=== PATIENT | female | born 1990 | race American Indian/Alaskan Native ===

== ENCOUNTER 2018-09-13 13:28 | Inpatient (IN) | payer MEDICAID ==
[2018-09-13] MEDS ORDERED: PEPCID IV NR (13:50)
[2018-09-13] MEDS ORDERED: BICITRA PO NR (13:50)
[2018-09-13] MEDS ORDERED: REGLAN IV NR (13:50)
--- NOTE | 2018-09-13 13:57 | History and Physical Report ---
History of Present Illness Date of admission: 09/13/18 13:28 Chief complaint: transferred from clinic due to elevated BP 170s/115 History of present illness: 28yo 37wks KERI 10/03/18 was transferred from clinic due to worsening of chronic hypertension on Labetolol. She also is an insulin-dependent diabetic on insulin. Her last Hemoglobin A1C was 7-8. She has a history of two previous section. She reports good movement, no loss of fluid and no vaginal bleeding. She is a patient of [facility] since 11 weeks gestation and is co-managed by [facility] for chronic hypertension, pregestational diabetes on insulin. Her has been also complicated by GBS+ cultures, Chlamydia with negative test of cure, sickle cell trait and anemia. 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 Social history: single - Obstetrical History Expected Date of Delivery: 10/03/18 Actual Gestation: 37 Week(s) 1 Day(s) : 3 Number of Living Children: 2 Medications and Allergies Allergies Allergy/AdvReac Type Severity Reaction Status Date / Time No Known Allergies Allergy Unverified 09/13/18 13:46 Active Meds: Active Medications Citric Acid/Sodium Citrate (Bicitra) 30 ml PO ONCE ONE Stop: 09/13/18 13:51 Famotidine (Pepcid) 20 mg IV ONCE ONE Stop: 09/13/18 13:51 Cefazolin Sodium (Ancef/Sterile Water 2 Gm/20 Ml) 2 gm in 20 mls @ 80 mls/hr IV PREOP NR; Protocol Lactated Ringer's (Lactated Ringers) 1,000 mls @ 2,250 mls/hr IV PREOP MARTITA Stop: 09/14/18 14:27 Oxytocin/Sodium Chloride (Pitocin/Ns 20 Unit/1000ml Drip) 20 units in 1,000 mls @ 0 mls/hr IV TITR MARTITA Metoclopramide HCl (Reglan) 10 mg IV ONCE ONE Stop: 09/13/18 13:51 Results All other labs normal. Assessment and Plan - Patient Problems (1) 37 weeks gestation of Current Visit: Yes Status: Acute Plan to address problem: 1. Admit to L&D 2. Routine labs. PIH labs. Serum glucose. IVF 3. URIEL 4. Ancef 2g IV 5. Risk, benefits and alternatives discussed and informed consent signed in chart. 6. Proceed to repeat csection due to worsening, uncontrolled chronic hypertension on medication and insulin dependent diabetes mellitus at 37 weeks. See APA recommendation per ACOG. (2) Insulin dependent diabetes mellitus Current Visit: Yes Status: Acute (3) Chronic hypertension affecting Current Visit: Yes Status: Acute Plan to address problem: Continue Labetolol . (4) Sickle cell trait Current Visit: Yes Status: Acute
[2018-09-13] MEDS ORDERED: PITOCin/NS 20 UNIT/1000ML DRIP 20 UNITS/1,000 ML BAG IV SCH ×2 (14:00→18:00)
[2018-09-13] MEDS ORDERED: ANCEF/STERILE WATER 2 GM/20 ML 2 GM/20 ML SYRINGE IV NR (14:00)
[2018-09-13] MEDS ORDERED: LACTATED RINGERS 2,000 ML ONE (14:07)
[2018-09-13] MEDS ORDERED: APRESOLINE IV ONE (14:25)
[2018-09-13 14:37] LABS: Basophils % (Auto) 0.5 % (0.0-1.8); Eosinophils # (Auto) 0.1 K/mm3 (0.0-0.4); Eosinophils % (Auto) 1.2 % (0.0-4.3); Hematocrit 37.8 % (30.3-42.9); Hemoglobin 12.2 gm/dl (10.1-14.3); Lymphocytes # (Auto) 1.5 K/mm3 (1.2-5.4); Lymphocytes % (Auto) 24.5 % (13.4-35.0); Mean Corpuscular HGB Conc 32 % (30-34); Mean Corpuscular Volume 73 fl (79-97); Monocytes # (Auto) 0.5 K/mm3 (0.0-0.8); Monocytes % (Auto) 8.3 % (0.0-7.3); Red Blood Count 5.22 M/mm3 (3.65-5.03); Red Cell Distribution Width 14.9 % (13.2-15.2)
[2018-09-13] MEDS ORDERED: SENSORCAINE/DEXTR 0.75-8.25% INFILTRATI ONE (14:45)
[2018-09-13] MEDS ORDERED: SUBLIMAZE ONE (14:45)
[2018-09-13 14:54] LABS: Alanine Aminotransferase 26 units/L (7-56); Albumin 3.2 g/dL (3.9-5); BUN/Creatinine Ratio 15; Blood Urea Nitrogen 9 mg/dL (7-17); Calcium 8.8 mg/dL (8.4-10.2); Hemolysis Index 5
[2018-09-13] MEDS ORDERED: SODIUM CHLORIDE FLUSH SYRINGE 10 ML IV PRN (15:00)
[2018-09-13] MEDS ORDERED: fentaNYL-BUPIV 2 MCG/ML-0.125% 200 MCG/100 ML BAG EPIDURAL SCH (15:00)
[2018-09-13] MEDS ORDERED: NUBAIN IV PRN (15:00)
[2018-09-13] MEDS: LACTATED RINGERS 1,000 ML IV SCH ×2 (15:14→15:15)
[2018-09-13] MEDS ORDERED: PHENERGAN PO PRN (15:30)
[2018-09-13] MEDS ORDERED: ZOFRAN IV PRN (15:30)
[2018-09-13] MEDS ORDERED: MORPHINE IV PRN (15:30)
[2018-09-13] MEDS ORDERED: NARCAN 0.4 MG/1 ML IV PRN ×2 (15:30→17:59)
[2018-09-13] MEDS ORDERED: PHENERGAN PR PRN (15:30)
[2018-09-13 15:33] LABS: Platelet Count 150 K/mm3 (140-440)
[2018-09-13] MEDS ORDERED: NACL 0.9% IR ONE (16:29)
[2018-09-13] MEDS ORDERED: WATER FOR IRRIG STERILE IR ONE (16:29)
--- NOTE | 2018-09-13 17:58 | Event Note ---
PATIENT IS TO RECEIVE NO TORADOL OR NSAIDs this admission due to mild thrombocytopenia, history of pre-op SWEET-2 inhibitor use, estimated blood loss >1,000ml and chronic hypertension.
[2018-09-13] MEDS ORDERED: LANSINOH TP PRN (17:59)
[2018-09-13] MEDS ORDERED: MYLICON PO PRN (17:59)
[2018-09-13] MEDS ORDERED: TUCKS PAD TP PRN (17:59)
[2018-09-13] MEDS ORDERED: D50W (25GM) Syringe IV PRN (18:03)
[2018-09-13] MEDS: APRESOLINE IV PRN ×2 (18:21→19:02)
--- NOTE | 2018-09-13 18:25 | Operative Report ---
Operative Report Operative Report: PREOP Diagnosis 1. 37 1/7 weeks gestation 2. Previous section 3. Uncontrolled chronic hypertension on medication 4. Pregestational diabetes mellitus on insulin Postop Diagnosis 1. 37 1/7 weeks gestation 2. Previous section 3. Uncontrolled chronic hypertension on medication 4. Pre-gestational diabetes mellitus on insulin 5. Multiple leiomyoma Procedure: Repeat low-transverse section Findings 1. Viable female infant in the compound presentation (hand, vertex) weighing 8lb 6oz, 3646g APGARS 8 at 1 min, 9 at 5 min 2. Leiomyomas- one right anterior uterine body, one right posterior uterine body 3. Normal bilateral ovaries and tubes 4. Nuchal cord x 1 Surgeon 1. Sandy Toledo MD Anesthesia: 1. Spinal I/O: EBL: 1300ml UOP: 400ml, clear urine IVF 2500ml LR Specimens removed: 1. Placenta Complications: none Disposition: Patient taken to recovery room in stable condition INDICATIONS: The patient is a 28yo at 37 1/7weeks that was transferred from clinic due to BP 170s/115. Her csection was scheduled for 38 weeks but due to worsening chronic hypertension requiring IV anti-hypertensives, insulin- dependent diabetes and history of alirio csection the decision was made to perform repeat csection today. The patient was consented and the risks includ ing but not limited to bleeding, infections, injury to surrounding organs, potential injury to mother/infant were discussed. All questions were answered and informed consent signed. PROCEDURE: The patient was taken to the OR in stable condition. Adequate anesthesia was achieved with epidural anesthesia. A grajeda catheter was placed. She wore SCDs for DVT prophylaxis. And received Ancef for infection prophylaxis. heart tones were confirmed at 157. The patient was prepped and draped in the usual fashion and an additional time out was done. A Pfannestiel incision was made over the previous uterine scar. The fascia was incised and the incision extended laterally. The superior and inferior aspect of the rectus muscle was dissected off of the fascia. Entry into the peritoneum was achieved. The incision was extended cranially and caudally. An Mariano retractor was placed. A low-transverse incision made made in the uterus and extended laterally. membranes were ruptured and noted to be clear. The head was brought to the hysterotomy annd (right) hand was noted to present as well. Nuchal cord x 1 was reduced, body delivered. The 's mouth was bulb suctioned. 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 The placenta was delivered intact and 20 units of IV Pitocin were added to LR fluids. The uterus was cleaned of all clots. The uterus was repaired with 0- Vicryl in a running, locked stitch and an imbricating layer of the same suture was used. 2-0 Vicryl was used to achieve hemostasis. The rectus and peritoneum was repproximated with 2-0 Vicryl. Interceed was placed between the uterine and rectus muscle planes. The rectus muscle was noted to bleed and Tissell Fibrin sealant was applied. The fascia was closed with 0 Vicryl. The right aspect of the subcutaneous layer was noted to bleed and a 2-0 Vicryl was used to achieve hemostasis. The subcutaneous layer reapproximated with 2-0 Vicryl and the Skin closed with 4-0 Vicryl. The patient tolerated the procedure well. All counts were correct x 3. Urine was noted to be clear at close of case. I was present and scrubbed for the entire procedure. The patient was taken to the recovery room in stable condition.
[2018-09-13] MEDS: DILAUDID IV PRN (19:38)
[2018-09-13] MEDS: NORMODYNE PO SCH (21:49)
[2018-09-13] MEDS ORDERED: D5LR 1,000 ML IV SCH (22:00)
[2018-09-13] MEDS: HumuLIN R SUB-Q SCH (22:12)
[2018-09-13] MEDS: ANCEF/NS 1 GM/50 ML 1 GM/50 ML BAG IV SCH (23:59)
[2018-09-14] MEDS: DILAUDID IV PRN
[2018-09-14] MEDS: PERCOCET 5/325 PO PRN ×3 (05:32→21:11)
[2018-09-14 06:14] LABS: Hematocrit 25.4 % (30.3-42.9); Hemoglobin 8.3 gm/dl (10.1-14.3)
[2018-09-14] MEDS: ANCEF/NS 1 GM/50 ML 1 GM/50 ML BAG IV SCH (08:32)
[2018-09-14] MEDS: LACTATED RINGERS 1,000 ML IV SCH (08:32)
[2018-09-14] MEDS: HumuLIN R SUB-Q SCH ×3 (08:57→16:30)
[2018-09-14] MEDS: FEOSOL PO SCH (10:02)
[2018-09-14] MEDS: NORMODYNE PO SCH ×2 (10:02→23:00)
--- NOTE | 2018-09-14 10:35 | Progress Note ---
Assessment and Plan A: POD #1 IDDM CHTN P: Follow Routine PostOp Orders Continue MD management for IDDM and CHTN Encourage ambulation Subjective - Subjective Date of service: 09/14/18 Patient reports: appetite normal, pain well controlled, ambulating normally, other (Complians of mild BUCKNER, denies visual changes, N&V, and edema) Objective - Vital Signs Latest vital signs: Vital Signs Temp Pulse Resp BP BP Pulse Ox 09/14/18 08:41 98.7 F 101 H 18 147/95 98 09/14/18 05:32 18 09/14/18 04:19 98.8 F 102 H 16 146/88 97 09/14/18 00:31 99.2 F 111 H 16 140/87 96 09/14/18 00:00 20 09/13/18 21:49 108 H 141/87 09/13/18 20:10 100 H 146/92 09/13/18 19:38 18 09/13/18 19:20 98.7 F 99 H 15 139/86 100 09/13/18 19:02 100 H 150/84 09/13/18 18:57 99 H 29 H 142/89 100 09/13/18 18:45 100 H 14 151/83 99 09/13/18 18:30 95 H 14 147/86 100 09/13/18 18:25 100 H 14 161/87 141/76 99 09/13/18 18:21 90 161/87 09/13/18 18:15 75 11 L 158/87 158/89 99 09/13/18 18:10 76 15 155/93 155/93 99 09/13/18 18:05 99 H 14 158/86 158/86 99 09/13/18 18:00 98.5 F 89 11 L 130/88 130/88 99 09/13/18 15:11 96 H 132/69 09/13/18 15:09 98 H 134/71 09/13/18 14:58 99 H 150/85 09/13/18 14:57 99 H 181/109 09/13/18 14:47 81 183/98 09/13/18 14:46 81 183/98 09/13/18 14:40 99.6 F 20 09/13/18 14:26 97 H 166/91 09/13/18 14:12 82 179/93 09/13/18 13:57 85 163/92 09/13/18 13:55 85 167/105 09/13/18 13:54 90 165/105 09/13/18 13:52 86 174/107 Intake and Output 09/13/18 09/14/18 09/14/18 22:59 06:59 14:59 Intake Total 3937.5 550 Output Total 650 1200 400 Balance 3287.5 -650 -400 Intake: IV 3937.5 50 ANCEF/NS 1 GM/50 ML 1 gm 50 In 50 ml @ 100 mls/hr IV Q8H MARTITA Rx#:[id number] Lactated Ringers 1,000 ml 1037.5 @ 2250 mls/hr IV PREOP MARTITA Rx#:[id number] Intake, Free Water 500 Output: Urine 650 1200 400 Indwelling Catheter 1200 400 Other: Total, Output Amount 800 400 Estimated Blood Loss 1,300 - Exam Breasts: Present: normal Cardiovascular: Present: Regular rate Lungs: Present: Clear to auscultation, Normal air movement Abdomen: Present: normal appearance, soft, normal bowel sounds Uterus: Present: normal, firm, fundal height below umbilicus Extremities: Present: normal Incision: Present: normal, dry, dressed - Labs Labs: Abnormal lab results 09/13/18 09/13/18 09/14/18 Range/Units 14:12 14:12 05:56 RBC 5.22 H (3.65-5.03) M/mm3 Hgb 8.3 L D (10.1-14.3) gm/dl Hct 25.4 L D (30.3-42.9) % MCV 73 L (79-97) fl MCH 23 L (28-32) pg [place] % (Auto) 8.3 H (0.0-7.3) % Sodium 135 L (137-145) mmol/L Creatinine 0.6 L (0.7-1.2) mg/dL POC Glucose (70-105) Alkaline Phosphatase 144 H (35-129) units/L Albumin 3.2 L (3.9-5) g/dL 09/14/18 Range/Units 08:48 RBC (3.65-5.03) M/mm3 Hgb (10.1-14.3) gm/dl Hct (30.3-42.9) % MCV (79-97) fl MCH (28-32) pg [place] % (Auto) (0.0-7.3) % Sodium (137-145) mmol/L Creatinine (0.7-1.2) mg/dL POC Glucose 174 H (70-105) Alkaline Phosphatase (35-129) units/L Albumin (3.9-5) g/dL
[2018-09-14] MEDS: MILK OF MAGNESIA PO PRN (22:55)
[2018-09-15] MEDS: PERCOCET 5/325 PO PRN ×3 (01:22→17:21)
[2018-09-15] MEDS: HumuLIN R SUB-Q SCH ×3 (09:02→21:55)
[2018-09-15] MEDS: NORMODYNE PO SCH ×2 (10:00→21:57)
[2018-09-15] MEDS: FEOSOL PO SCH (10:00)
[2018-09-15 12:28] LABS: Bilirubin,Urine NEG (Negative); Blood,Urine LG (Negative); Color,Urine Yellow (Yellow); Mucus,Urine FEW /HPF; Protein,Urine <15 mg/dL mg/dL (Negative); Urobilinogen,Urine < 2.0 mg/dL (<2.0)
--- NOTE | 2018-09-15 14:01 | Progress Note ---
Assessment and Plan - Patient Problems (1) 37 weeks gestation of Current Visit: Yes Status: Acute (2) delivery delivered Current Visit: Yes Status: Acute Plan to address problem: Continue routine postop care. (3) Tachycardia Current Visit: Yes Status: Acute Plan to address problem: Patient is afebrile. Tachycardia may be due to anemia although patient is currently asymptomatic.. Repeat CBC today. If stable, will do EKG and PE workup. (4) Anemia Current Visit: Yes Status: Acute (5) Hypertension Current Visit: Yes Status: Acute Plan to address problem: BP has been stable. Continue labetolol. (6) Diabetes Current Visit: Yes Status: Acute Qualifiers: Diabetes mellitus type: type 2 Diabetes mellitus complication status: without complication Plan to address problem: Continue sliding scale. Patient will continue 1/2 dose of previous insulin regimen after discharge. Subjective - Subjective Date of service: 09/15/18 Principal diagnosis: S/P repeat C/section. IDDM. CHTN Interval history: Patient is S/P repeat C/section 2 days ago. She has chronic HTN.She is on labetolol. Her BP has been in the 130-140's/70-80's. She denies any headache or visual changes. She also has pre-gestational DM and is on insulin sliding scale. Her HR has been in the 110-120's. Her current Hb is 8.3 (post-op). She denies any dizziness, chest pain or palpitation. She has been ambulating well. Objective - Vital Signs Latest vital signs: Vital Signs Temp Pulse Resp BP BP Pulse Ox 09/15/18 10:00 124 H 18 130/79 09/15/18 08:25 98.0 F 111 H 20 140/90 98 09/15/18 03:38 98.9 F 96 H 18 139/83 139/83 96 09/15/18 01:22 18 09/15/18 00:46 99.2 F 18 129/73 09/15/18 00:42 99.2 F 99 H 18 129/73 98 09/14/18 23:00 109 H 150/92 09/14/18 22:59 109 H 150/92 95 09/14/18 21:11 18 09/14/18 21:01 97.5 F L 20 139/76 09/14/18 20:55 97.5 F L 102 H 20 139/76 09/14/18 15:41 99.2 F 95 H 18 141/86 97 Intake and Output 09/14/18 09/15/18 09/15/18 23:59 07:59 15:59 Intake Total 480 600 Output Total 800 Balance -320 600 Intake: Oral 480 240 Intake, Free Water 360 Output: Urine 800 Indwelling Catheter 800 Other: Total, Intake Amount 480 240 Total, Output Amount 800 # Voids Indwelling Catheter 1 Void 2 - Exam Cardiovascular: Present: Normal S1, Normal S2 Lungs: Present: Clear to auscultation Vulva: both: normal Deep Tendon Reflex Grade: Normal +2 - Labs Labs: Abnormal lab results 09/14/18 09/15/18 09/15/18 Range/Units 16:21 08:27 12:39 POC Glucose 124 H 161 H 220 H (70-105)
[2018-09-15 14:39] LABS: Basophils % (Auto) 0.1 % (0.0-1.8); Eosinophils # (Auto) 0.1 K/mm3 (0.0-0.4); Eosinophils % (Auto) 0.9 % (0.0-4.3); Hematocrit 23.1 % (30.3-42.9); Hemoglobin 7.4 gm/dl (10.1-14.3); Lymphocytes # (Auto) 1.3 K/mm3 (1.2-5.4); Lymphocytes % (Auto) 14.2 % (13.4-35.0); Mean Corpuscular HGB Conc 32 % (30-34); Mean Corpuscular Volume 73 fl (79-97); Monocytes # (Auto) 0.7 K/mm3 (0.0-0.8); Monocytes % (Auto) 7.8 % (0.0-7.3); Platelet Count 163 K/mm3 (140-440); Red Blood Count 3.16 M/mm3 (3.65-5.03); Red Cell Distribution Width 15.1 % (13.2-15.2)
[2018-09-15] MEDS ORDERED: NACL 0.9% 500 ML 500 ML IV NR (15:38)
--- NOTE | 2018-09-15 15:46 | Event Note ---
Date: 09/15/18 Patient is S/P repeat C/section 2 days ago. She has chronic HTN.She is on labetolol. Her BP has been in the 130-140's/70-80's. She denies any headache or visual changes. She also has pre-gestational DM and is on insulin sliding scale. Her HR has been in the 110-120's. Her post-op Hb was 8.3 yesterday. She denies any dizziness. Today, H/H is 7.3/23 (from Hb 12.2 pre-op). EKG showed sinus tachycardia. Patient was counselled for blood transfusion due to symptomatic anemia. Will cross-match and transfuse 2 units PRBCs. Will F/U cbc 3 hrs after completion.
[2018-09-15] MEDS ORDERED: BENADRYL IV ONE (19:43)
[2018-09-15] MEDS: TYLENOL PO PRN (19:53)
[2018-09-16] MEDS ORDERED: NORMODYNE PO ONE (03:00)
[2018-09-16] MEDS: PERCOCET 5/325 PO PRN ×2 (04:34→21:28)
[2018-09-16] MEDS ORDERED: APRESOLINE IV ONE (05:11)
[2018-09-16] MEDS ORDERED: APRESOLINE IV PRN (05:13)
[2018-09-16 06:39] LABS: Hematocrit 29.6 % (30.3-42.9); Hemoglobin 9.9 gm/dl (10.1-14.3); Mean Corpuscular HGB Conc 33 % (30-34); Mean Corpuscular Volume 77 fl (79-97); Platelet Count 159 K/mm3 (140-440); Red Blood Count 3.87 M/mm3 (3.65-5.03); Red Cell Distribution Width 17.2 % (13.2-15.2)
[2018-09-16 06:55] LABS: Alanine Aminotransferase 20 units/L (7-56); Albumin 2.7 g/dL (3.9-5); BUN/Creatinine Ratio 15; Blood Urea Nitrogen 6 mg/dL (7-17); Calcium 8.6 mg/dL (8.4-10.2); Hemolysis Index 14
[2018-09-16] MEDS: NORMODYNE PO SCH ×2 (10:44→21:30)
[2018-09-16] MEDS: FEOSOL PO SCH (10:44)
--- NOTE | 2018-09-16 11:33 | Progress Note ---
Subjective - Subjective Date of service: 09/16/18 Principal diagnosis: S/P repeat C/section - POD #3. IDDM. CHTN Interval history: Pt not in room - in NICU [place]: doing well, in NICU Objective - Vital Signs Latest vital signs: Vital Signs Temp Pulse Resp BP BP Pulse Ox 09/16/18 10:44 111 H 155/97 09/16/18 08:02 98.0 F 107 H 24 142/82 97 09/16/18 06:45 98.2 F 110 H 16 146/88 146/88 98 09/16/18 06:17 113 H 18 129/72 98 09/16/18 06:15 98.4 F 115 H 18 129/72 09/16/18 06:00 115 H 142/89 09/16/18 05:50 111 H 158/102 09/16/18 05:45 109 H 171/112 09/16/18 05:44 105 H 171/112 09/16/18 04:37 105 H 171/108 97 09/16/18 04:34 20 09/16/18 03:19 107 H 172/105 09/16/18 01:41 99.8 F H 106 H 20 155/95 98 09/16/18 01:11 98.8 F 109 H 16 155/95 09/16/18 00:41 98.6 F 109 H 16 148/89 09/16/18 00:11 99.2 F 103 H 18 162/99 09/15/18 23:41 98.7 F 103 H 20 152/96 09/15/18 23:11 99.4 F 105 H 18 155/96 09/15/18 22:56 99.6 F 103 H 18 153/92 09/15/18 22:55 103 H 18 153/92 99 09/15/18 21:57 105 H 160/88 09/15/18 21:52 105 H 18 160/88 98 09/15/18 21:22 109 H 18 161/94 97 09/15/18 20:50 105 H 18 143/86 97 09/15/18 20:35 108 H 18 146/85 95 09/15/18 20:22 109 H 20 153/92 97 09/15/18 20:05 98.4 F 122 H 18 140/86 09/15/18 17:21 20 09/15/18 16:41 98.3 F 115 H 20 131/81 95 Intake and Output 09/15/18 09/16/18 09/16/18 22:59 06:59 14:59 Intake Total 490 250 Output Total 800 Balance -310 250 Intake: Intake, Free Water 240 Blood Product 250 250 Leukoreduced Red Blood 250 Cells Unit [id number] Leukoreduced Red Blood 0 250 Cells Unit [id number] Output: Urine 800 Void 800 Other: Total, Output Amount 800 # Voids Void 1 - Labs Labs: Abnormal lab results 09/13/18 09/15/18 09/15/18 Range/Units 14:12 12:39 14:00 RBC 3.16 L (3.65-5.03) M/mm3 Hgb 7.4 L (10.1-14.3) gm/dl Hct 23.1 L (30.3-42.9) % MCV 73 L (79-97) fl MCH 24 L (28-32) pg RDW (13.2-15.2) % [place] % (Auto) 7.8 H (0.0-7.3) % Seg Neutrophils % 77.0 H (40.0-70.0) % BUN (7-17) mg/dL Creatinine (0.7-1.2) mg/dL Glucose (65-100) mg/dL POC Glucose 220 H (70-105) Total Protein (6.3-8.2) g/dL Albumin (3.9-5) g/dL Crossmatch See Detail 09/15/18 09/15/18 09/15/18 Range/Units 17:18 21:37 23:56 RBC (3.65-5.03) M/mm3 Hgb (10.1-14.3) gm/dl Hct (30.3-42.9) % MCV (79-97) fl MCH (28-32) pg RDW (13.2-15.2) % [place] % (Auto) (0.0-7.3) % Seg Neutrophils % (40.0-70.0) % BUN (7-17) mg/dL Creatinine (0.7-1.2) mg/dL Glucose (65-100) mg/dL POC Glucose 142 H 212 H 122 H (70-105) Total Protein (6.3-8.2) g/dL Albumin (3.9-5) g/dL Crossmatch 09/16/18 09/16/18 Range/Units 06:10 06:10 RBC (3.65-5.03) M/mm3 Hgb 9.9 L (10.1-14.3) gm/dl Hct 29.6 L D (30.3-42.9) % MCV 77 L (79-97) fl MCH 26 L (28-32) pg RDW 17.2 H (13.2-15.2) % [place] % (Auto) (0.0-7.3) % Seg Neutrophils % (40.0-70.0) % BUN 6 L (7-17) mg/dL Creatinine 0.4 L (0.7-1.2) mg/dL Glucose 105 H (65-100) mg/dL POC Glucose (70-105) Total Protein 5.5 L (6.3-8.2) g/dL Albumin 2.7 L (3.9-5) g/dL Crossmatch
[2018-09-16] MEDS: TYLENOL PO PRN (16:45)
[2018-09-16] MEDS: PROCARDIA XL PO SCH (18:25)
--- NOTE | 2018-09-16 18:31 | Event Note ---
Date: 09/16/18 Event note at 17:55: Patient's BP elevated 155/97 in spite of Labetalol 300 mg po BID. No headache or visual disturbance. Normal platelet count, AST, ALT. Consulted with Dr. Lamb re: this patient and elevated blood pressures. Procardia XL 30 mg po daily, first dose to be given now. Notified patient's nurse re: addition of Procardia.
[2018-09-16] MEDS: HumuLIN R SUB-Q SCH (22:36)
[2018-09-17] MEDS: HumuLIN R SUB-Q SCH ×6 (08:10→22:35)
[2018-09-17] MEDS: FEOSOL PO SCH (10:11)
[2018-09-17] MEDS: NORMODYNE PO SCH ×2 (10:11→22:10)
[2018-09-17] MEDS: PROCARDIA XL PO SCH (10:11)
--- NOTE | 2018-09-17 10:28 | Progress Note ---
Assessment and Plan A: /postop day 4 S/P repeat low transverse section. Anemia secondary to and blood loss. Elevated blood pressures (patient is already on PO Labetalol and Procardia). Mild tachycardia. Pregestational diabetes. P: Continue iron supplementation. Hospitalist consult due to elevated blood pressures, tachycardia, and diabetes. Consulted with Dr. Lamb re: this patient. Subjective - Subjective Date of service: 09/17/18 Principal diagnosis: /postop day 4 S/P repeat LTCS Interval history: /postop day 4 S/P repeat low transverse section. Patient denies headache, visual disturbance, chest pain, SOB, nausea or vomiting, abdominal or epigastric pain, or swelling. Voiding without difficulty; ambulating well. Passing gas. Tolerating a regular diet without nausea or vomiting. Patient reports: appetite normal, voiding normally, pain well controlled, flatus, ambulating normally, no dizzy ambulation, no nauseated [place]: doing well Objective - Vital Signs Latest vital signs: Vital Signs Temp Pulse Resp BP BP Pulse Ox 09/17/18 10:10 101 H 148/88 09/17/18 07:28 98.3 F 106 H 16 149/93 98 09/17/18 04:30 98.0 F 104 H 20 109/76 09/17/18 01:52 96 H 20 144/88 09/16/18 23:45 98.4 F 102 H 20 138/87 09/16/18 22:47 100 H 20 148/92 09/16/18 22:28 18 09/16/18 21:30 105 H 170/104 09/16/18 21:28 20 09/16/18 20:20 98.2 F 105 H 20 170/104 09/16/18 16:50 98.4 F 102 H 24 156/101 98 09/16/18 16:45 20 09/16/18 10:44 111 H 155/97 Intake and Output 09/16/18 09/17/18 09/17/18 23:59 07:59 15:59 Intake Total 480 Balance 480 Intake: Oral 480 Other: Total, Intake Amount 240 # Voids Void 1 1 - Exam Cardiovascular: Present: Regular rate, Normal S1, Normal S2 Lungs: Present: Clear to auscultation Abdomen: Present: normal appearance, soft, normal bowel sounds. Absent: distention, tenderness, guarding, rigidity Uterus: Present: normal, firm, fundal height below umbilicus. Absent: bogginess, tenderness Extremities: Present: normal. Absent: tenderness, edema Incision: Present: normal, dry, intact - Labs Labs: Abnormal lab results 09/16/18 09/16/18 09/17/18 Range/Units 17:04 22:05 08:02 POC Glucose 138 H 171 H 138 H (70-105)
[2018-09-17 12:15] LABS: Hematocrit 29.8 % (30.3-42.9); Hemoglobin 9.9 gm/dl (10.1-14.3)
--- NOTE | 2018-09-17 12:16 | Consultation ---
History of Present Illness - Reason for Consult Consult date: 09/17/18 Hypertension, Tachycardia, elevated serum glucose Requesting physician: COREY WATSON - History of Present Illness 28 YO Female POD #4 S/P C Section. Consulted placed byPrimo Laura CNP for HTN, Diabetes, and Tachycardia. Pt seen and evaluated in her room. Pt denies fever, chills, CP, palpitations, NVD, Trauma, unilateral leg swelling, calf pain, individual/family history of DVT/PE/Blood Clotting Disorders, cough, blurred vision, headache, dizziness, shortness of breath, vertigo, skin rash, polydipsia, polyuria,polyphagia, or recent ill contacts. Pt denies uncontrolled pain. Pt reports that the blood pressure cuff in painful when it inflates which causes patient to "get anxious". No reported nursing events. Past History Past Medical History: diabetes, hypertension Past Surgical History: Social history: single Family history: diabetes, hypertension Medications and Allergies Allergies Allergy/AdvReac Type Severity Reaction Status Date / Time No Known Allergies Allergy Unverified 09/13/18 13:46 Home Medications Medication Instructions Recorded Confirmed Last Taken Type Ferrous Sulfate [Feosol 325 MG tab] 325 mg PO BID 30 Days #60 tablet 09/13/18 Unknown Rx oxyCODONE /ACETAMINOPHEN [Percocet 1 tab PO Q4HR PRN 14 Days #30 tab 09/13/18 Unknown Rx 5/325] Active Meds: Active Medications Acetaminophen (Tylenol) 650 mg PO Q4H PRN PRN Reason: Fever >100.5/BUCKNER Last Admin: 09/16/18 16:45 Dose: 650 mg Documented by: Dextrose (D50w (25gm) Syringe) 50 ml IV PRN PRN PRN Reason: Hypoglycemia Ferrous Sulfate (Feosol) 325 mg PO QDAY MARTITA Last Admin: 09/17/18 10:11 Dose: 325 mg Documented by: Hydralazine HCl (Apresoline) 5 mg IV Q30MIN PRN PRN Reason: Blood Pressure Hydromorphone HCl (Dilaudid) 0.5 mg IV Q4H PRN PRN Reason: breakthrough pain > 7/10 Last Admin: 09/14/18 00:00 Dose: 0.5 mg Documented by: Oxytocin/Sodium Chloride (Pitocin/Ns 20 Unit/1000ml Drip) 20 units in 1,000 mls @ 0 mls/hr IV TITR MARTITA Fentanyl/Bupivacaine/Sodium Chlor (Fentanyl-Bupiv 2 Mcg/Ml-0.125%) 200 mcg in 100 mls @ 8 mls/hr EPIDURAL TITRATE [facility]; Protocol Oxytocin/Sodium Chloride (Pitocin/Ns 20 Unit/1000ml Drip) 20 units in 1,000 mls @ 250 mls/hr IV DIRECT MARTITA Dextrose/Lactated Ringer's (D5lr) 1,000 mls @ 125 mls/hr IV DIRECT MARTITA Last Admin: 09/13/18 21:56 Dose: 125 mls/hr Documented by: Insulin Human Regular (Humulin R) 0 units SUB-Q AC [facility]; Protocol Last Admin: 09/17/18 08:10 Dose: Not Given Documented by: Insulin Human Regular (Humulin R) 0 units SUB-Q QHS [facility]; Protocol Last Admin: 09/16/18 22:36 Dose: 2 units Documented by: Labetalol HCl (Normodyne) 300 mg PO BID [facility] Last Admin: 09/17/18 10:11 Dose: 300 mg Documented by: Magnesium Hydroxide (Milk Of Magnesia) 30 ml PO QHS PRN PRN Reason: Constip Unrelieved By Senna Last Admin: 09/14/18 22:55 Dose: 30 ml Documented by: Multi-Ingredient Ointment (Lansinoh) 1 applic TP PRN PRN PRN Reason: dryness/cracking Nalbuphine HCl (Nubain) 2.5 mg IV Q2H PRN PRN Reason: Itching Naloxone HCl (Narcan 0.4 Mg/1 Ml) 0.1 mg IV Q2MIN PRN PRN Reason: Res Rate </= 8 or 02 SAT < 92% Nifedipine (Procardia Xl) 30 mg PO QDAY [facility] Last Admin: 09/17/18 10:11 Dose: 30 mg Documented by: Ondansetron HCl (Zofran) 4 mg IV Q8H PRN PRN Reason: Nausea And Vomiting Oxycodone/Acetaminophen (Percocet 5/325) 2 tab PO Q4H PRN PRN Reason: Pain, Moderate (4-6) Last Admin: 09/16/18 21:28 Dose: 2 tab Documented by: Promethazine HCl (Phenergan) 25 mg PO Q6H PRN PRN Reason: Nausea And Vomiting Promethazine HCl (Phenergan) 25 mg [place] Q6H PRN PRN Reason: Nausea And Vomiting Simethicone (Mylicon) 80 mg PO Q6H PRN PRN Reason: Gas pain Last Admin: 09/15/18 10:11 Dose: 80 mg Documented by: Sodium Chloride (Sodium Chloride Flush Syringe 10 Ml) 10 ml IV PRN PRN PRN Reason: flush Witch Radha/Glycerin (Tucks Pad) 1 each TP PRN PRN PRN Reason: Hemorrhoids/cleansing/soothing Review of Systems Constitutional: no weight loss, no weight gain, no fever, no chills Ears, nose, mouth and throat: no ear pain, no ear discharge, no tinnitis, no decreased hearing, no nose pain Breasts: no change in shape, no swelling, no mass Cardiovascular: no chest pain, no orthopnea, no palpitations Respiratory: no cough, no cough with sputum, no excessive sputum, no shortness of breath Gastrointestinal: no nausea, no vomiting, no diarrhea, no constipation, no change in bowel habits Genitourinary Female: no pelvic pain, no flank pain, no menorrhagia, no dysuria Rectal: no pain, no incontinence, no bleeding Musculoskeletal: no neck stiffness, no neck pain, no shooting arm pain, no arm numbness/tingling, no low back pain Integumentary: no rash, no pruritis, no redness, no sores, no wounds Neurological: no paralysis, no weakness, no parathesias, no numbness, no tingling, no seizures Psychiatric: no memory loss, no change in sleep habits, no sleep disturbances, no insomnia, no hypersomnia, no change in appetite, no change in libido Endocrine: no cold intolerance, no heat intolerance, no polyphagia, no excessive thirst, no polydipsia, no polyuria, no nocturia Hematologic/Lymphatic: no easy bruising, no easy bleeding, no lymphadenopathy, no lymphedema Allergic/Immunologic: no urticaria, no allergic rhinitis, no wheezing Exam - Constitutional Vitals: Temp Pulse Resp BP Pulse Ox 98.5 F 104 H 20 152/90 98 09/17/18 11:55 09/17/18 11:55 09/17/18 11:55 09/17/18 11:55 09/17/18 11:55 General appearance: Present: no acute distress, well-nourished - EENT Eyes: Present: PERRL ENT: hearing intact, clear oral mucosa - Neck Neck: Present: supple, normal ROM - Respiratory Respiratory effort: normal Respiratory: bilateral: CTA - Cardiovascular Heart Sounds: Present: S1 & S2. Absent: rub, click - Extremities Extremities: pulses symmetrical, No edema Peripheral Pulses: within normal limits - Abdominal General gastrointestinal: Present: soft, non-tender, non-distended, normal bowel sounds, other (Incision: CDI) Female genitourinary: Present: normal - Integumentary Integumentary: Present: clear, warm, dry - Musculoskeletal Musculoskeletal: gait normal, strength equal bilaterally - Psychiatric Psychiatric: appropriate mood/affect, intact judgment & insight - Neurologic Neurologic: CNII-XII intact, moves all extremities Results - Labs CBC & Chem 7: 09/17/18 11:15 09/16/18 06:10 Labs: Abnormal lab results 09/16/18 09/16/18 09/17/18 Range/Units 17:04 22:05 08:02 POC Glucose 138 H 171 H 138 H (70-105) Assessment and Plan - Patient Problems (1) Diabetes Current Visit: Yes Status: Acute Qualifiers: Diabetes mellitus type: type 2 Diabetes mellitus complication status: without complication Plan to address problem: HGB A1C, Consistent carbohydrate diet, accu check, continue sliding scale insulin, Low carbohydrate diet (less than 50grams carbohydrates daily) (2) Hypertension Current Visit: Yes Status: Acute Qualifiers: Hypertension type: essential hypertension Qualified Code(s): I10 - Essential (primary) hypertension Plan to address problem: Manual Blood pressure measurement with patient in resting position. Discussed with nurse. add hydralazine 10mg TID, monitor BP q shift, (3) Tachycardia Current Visit: Yes Status: Acute Plan to address problem: CTA chest to evaluated for embolic disease.
[2018-09-17] MEDS: PERCOCET 5/325 PO PRN (12:19)
--- NOTE | 2018-09-17 18:13 | Cat Scan Report ---
PROCEDURE: CT ANGIOGRAM OF THE CHEST TECHNIQUE: Computerized axial tomographic angiography of the chest was performed during the IV injec tion of iodinated nonionic contrast. The image data was postprocessed using maximum intensity project ion (MIP) and 2-dimensional multiplanar reformatted (MPR) techniques.. Automated exposure control, a djustment of mA and/or kV according to patient size, or iterative reconstruction dose optimization te guilhermeniques were utilized. CPT G9637, 96171 HISTORY: Shortness of breath R06.02, chest pain unspecified R07.9 , COMPARISONS: None . FINDINGS: Pulmonary out flow tract, right and left main pulmonary arteries and the approximal branches: Clear, no filling defects seen to suggest pulmonary embolus. Pericardium: No evidence of pericardial effusion. Thoracic aorta: No evidence of aneurysmal dilatation or dissection. Coronary arteries: Unremarkable. Mediastinum and hilar regions: Non specific subcentimeter lymph nodes are visualized. No pathologica lly enlarged lymph nodes or masses are identified. Lung Jha: Minimal dependent atelectasis. Lungs otherwise are clear. Upper abdomen: Visualized portions of the liver are diffusely decreased in density consistent with f atty infiltration. No acute abnormalities are seen in the upper abdomen. Other: No acute bone abnormalities are identified. IMPRESSION: No acute abnormalities are identified. No evidence pulmonary embolus, aortic aneurysm or dissection. Minimal dependent atelectasis is seen. Fatty infiltration of the liver. No other abnormalities are visualized. This document is electronically signed by Jaxson Garcia MD., September 17 2018 06:11:45 PM ET
[2018-09-17] MEDS: APRESOLINE PO SCH ×2 (18:51→22:09)
[2018-09-18] MEDS: PERCOCET 5/325 PO PRN ×2 (02:44→16:33)
[2018-09-18] MEDS: APRESOLINE PO SCH ×3 (06:17→22:05)
[2018-09-18] MEDS: NORMODYNE PO SCH ×2 (08:59→22:06)
[2018-09-18] MEDS: PROCARDIA XL PO SCH (08:59)
[2018-09-18] MEDS: FEOSOL PO SCH (08:59)
[2018-09-18] MEDS: HumuLIN R SUB-Q SCH ×6 (09:00→22:47)
--- NOTE | 2018-09-18 17:04 | Progress Note ---
Assessment and Plan Assessment and plan: -- Hypertension ,well controlled cont Labetalol,procardia and hydralazine Low sodium diet --Diabetes mellitus: continue accuchecks,sliding scale moderate dose. Scale given to the patient Check with PMD in 1 week for further recommendations Diabetic diet. Pt says she has glucometer and supplies --Tachycardia: resolved. Patient needs to f/u with her PMD for her medical needs. Plan of care reviewed with the patient and her nurse. Medically stable for discharge. Thank you for this consult, we'll sign off. History Interval history: Patient seen and examined,Medical records reviewed Patient feels better,no new complaints,vital signs stable Hospitalist Physical - Constitutional Vitals: Temp Pulse Resp BP Pulse Ox 99.0 F 103 H 20 135/83 97 09/18/18 16:13 09/18/18 16:13 09/18/18 16:13 09/18/18 16:13 09/18/18 16:13 General appearance: Present: no acute distress, well-nourished - EENT Eyes: Present: PERRL, EOM intact - Neck Neck: Present: supple, normal ROM - Respiratory Respiratory effort: normal Respiratory: bilateral: diminished, negative: rales, rhonchi, wheezing - Cardiovascular Rhythm: regular Heart Sounds: Present: S1 & S2 - Extremities Extremities: no ischemia, No edema - Abdominal General gastrointestinal: soft, non-tender, non-distended, normal bowel sounds - Integumentary Integumentary: Present: clear, warm - Psychiatric Psychiatric: appropriate mood/affect, cooperative - Neurologic Neurologic: CNII-XII intact, moves all extremities Results - Labs CBC & Chem 7: 09/17/18 11:15 09/16/18 06:10 Labs: Laboratory Last Values WBC 10.7 K/mm3 (4.5-11.0) 09/16/18 06:10 RBC 3.87 M/mm3 (3.65-5.03) 09/16/18 06:10 Hgb 9.9 gm/dl (10.1-14.3) L 09/17/18 11:15 Hct 29.8 % (30.3-42.9) L 09/17/18 11:15 MCV 77 fl (79-97) L 09/16/18 06:10 MCH 26 pg (28-32) L 09/16/18 06:10 MCHC 33 % (30-34) 09/16/18 06:10 RDW 17.2 % (13.2-15.2) H 09/16/18 06:10 Plt Count 159 K/mm3 (140-440) 09/16/18 06:10 Lymph % (Auto) 14.2 % (13.4-35.0) 09/15/18 14:00 [place] % (Auto) 7.8 % (0.0-7.3) H 09/15/18 14:00 Eos % (Auto) 0.9 % (0.0-4.3) 09/15/18 14:00 Baso % (Auto) 0.1 % (0.0-1.8) 09/15/18 14:00 Lymph # 1.3 K/mm3 (1.2-5.4) 09/15/18 14:00 [place] # 0.7 K/mm3 (0.0-0.8) 09/15/18 14:00 Eos # 0.1 K/mm3 (0.0-0.4) 09/15/18 14:00 Baso # 0.0 K/mm3 (0.0-0.1) 09/15/18 14:00 Seg Neutrophils % 77.0 % (40.0-70.0) H 09/15/18 14:00 Seg Neutrophils # 7.3 K/mm3 (1.8-7.7) 09/15/18 14:00 Sodium 141 mmol/L (137-145) 09/16/18 06:10 Potassium 4.2 mmol/L (3.6-5.0) 09/16/18 06:10 Chloride 104.7 mmol/L (98-107) 09/16/18 06:10 Carbon Dioxide 25 mmol/L (22-30) 09/16/18 06:10 Anion Gap 16 mmol/L 09/16/18 06:10 BUN 6 mg/dL (7-17) L 09/16/18 06:10 Creatinine 0.4 mg/dL (0.7-1.2) L 09/16/18 06:10 Estimated GFR > 60 ml/min 09/16/18 06:10 BUN/Creatinine Ratio 15 % 09/16/18 06:10 Glucose 105 mg/dL (65-100) H 09/16/18 06:10 POC Glucose 206 (70-105) H 09/18/18 16:23 Hemoglobin A1c 6.5 % (4-6) H 09/17/18 11:15 Uric Acid 6.0 mg/dL (3.5-7.6) 09/13/18 14:12 Calcium 8.6 mg/dL (8.4-10.2) 09/16/18 06:10 Total Bilirubin 0.30 mg/dL (0.1-1.2) 09/16/18 06:10 AST 32 units/L (5-40) 09/16/18 06:10 ALT 20 units/L (7-56) 09/16/18 06:10 Alkaline Phosphatase 93 units/L (35-129) 09/16/18 06:10 Lactate Dehydrogenase 175 units/L (91-180) 09/13/18 14:12 Total Protein 5.5 g/dL (6.3-8.2) L 09/16/18 06:10 Albumin 2.7 g/dL (3.9-5) L 09/16/18 06:10 Albumin/Globulin Ratio 1.0 % 09/16/18 06:10 Urine Color Yellow (Yellow) 09/13/18 00:00 Urine Turbidity Clear (Clear) 09/13/18 00:00 Urine pH 5.0 (5.0-7.0) 09/13/18 00:00 Ur Specific Lucien 1.008 (1.003-1.030) 09/13/18 00:00 Urine Protein <15 mg/dl mg/dL (Negative) 09/13/18 00:00 Urine Glucose (UA) Neg mg/dL (Negative) 09/13/18 00:00 Urine Ketones Neg mg/dL (Negative) 09/13/18 00:00 Urine Blood Lg (Negative) 09/13/18 00:00 Urine Nitrite Neg (Negative) 09/13/18 00:00 Urine Bilirubin Neg (Negative) 09/13/18 00:00 Urine Urobilinogen < 2.0 mg/dL (<2.0) 09/13/18 00:00 Ur Leukocyte Esterase Neg (Negative) 09/13/18 00:00 Urine WBC (Auto) 2.0 /HPF (0.0-6.0) 09/13/18 00:00 Urine RBC (Auto) 98.0 /HPF (0.0-6.0) 09/13/18 00:00 U Epithel Cells (Auto) 2.0 /HPF (0-13.0) 09/13/18 00:00 Urine Mucus Few /HPF 09/13/18 00:00 Blood Type O POSITIVE 09/13/18 14:12 Antibody Screen Negative 09/13/18 14:12 Crossmatch See Detail 09/13/18 14:12 Active Medications - Current Medications Current Medications: Generic Name Dose Route Start Last Admin Trade Name Freq PRN Reason Stop Dose Admin Acetaminophen 650 mg 09/13/18 17:59 09/16/18 16:45 Tylenol PO 650 mg Q4H PRN Administration Fever >100.5/BUCKNER Dextrose 50 ml 09/13/18 18:03 D50w (25gm) Syringe IV PRN PRN Hypoglycemia Ferrous Sulfate 325 mg 09/14/18 10:00 09/18/18 08:59 Feosol PO 325 mg QDAY MARTITA Administration Hydralazine HCl 5 mg 09/16/18 05:13 Apresoline IV Q30MIN PRN Blood Pressure Hydralazine HCl 10 mg 09/17/18 14:00 09/18/18 13:40 Apresoline PO 10 mg Q8HR MARTITA Administration Hydromorphone HCl 0.5 mg 09/13/18 15:30 09/14/18 00:00 Dilaudid IV 0.5 mg Q4H PRN Administration breakthrough pain > 7/10 Oxytocin/Sodium Chloride 20 units in 1,000 mls @ 0 mls/hr 09/13/18 14:00 Pitocin/Ns 20 Unit/1000ml Drip IV TITR MARTITA As Directed Fentanyl/Bupivacaine/Sodium Chlor 200 mcg in 100 mls @ 8 mls/hr 09/13/18 15:00 Fentanyl-Bupiv 2 Mcg/Ml-0.125% EPIDURAL TITRATE MARTITA Protocol Oxytocin/Sodium Chloride 20 units in 1,000 mls @ 250 mls/hr 09/13/18 18:00 Pitocin/Ns 20 Unit/1000ml Drip IV DIRECT MARTITA Dextrose/Lactated Ringer's 1,000 mls @ 125 mls/hr 09/13/18 22:00 09/13/18 21:56 D5lr IV 125 mls/hr DIRECT MARTITA Administration Insulin Human Regular 0 units 09/14/18 07:30 09/18/18 16:34 Humulin R SUB-Q 3 units AC MARTITA Administration Protocol Insulin Human Regular 0 units 09/13/18 22:00 09/17/18 22:35 Humulin R SUB-Q 2 units QHS MARTITA Administration Protocol Labetalol HCl 300 mg 09/16/18 10:00 09/18/18 08:59 Normodyne PO 300 mg BID MARTITA Administration Magnesium Hydroxide 30 ml 09/13/18 17:59 09/14/18 22:55 Milk Of Magnesia PO 30 ml QHS PRN Administration Constip Unrelieved By Senna Multi-Ingredient Ointment 1 applic 09/13/18 17:59 Lansinoh TP PRN PRN dryness/cracking Nalbuphine HCl 2.5 mg 09/13/18 15:00 Nubain IV Q2H PRN Itching Naloxone HCl 0.1 mg 09/13/18 17:59 Narcan 0.4 Mg/1 Ml IV Q2MIN PRN Res Rate </= 8 or 02 SAT < 92% Nifedipine 30 mg 09/16/18 18:00 09/18/18 08:59 Procardia Xl PO 30 mg QDAY MARTITA Administration Ondansetron HCl 4 mg 09/13/18 15:30 Zofran IV Q8H PRN Nausea And Vomiting Oxycodone/Acetaminophen 2 tab 09/15/18 01:00 09/18/18 16:33 Percocet 5/325 PO 2 tab Q4H PRN Administration Pain, Moderate (4-6) Promethazine HCl 25 mg 09/13/18 15:30 Phenergan PO Q6H PRN Nausea And Vomiting Promethazine HCl 25 mg 09/13/18 15:[address] Q6H PRN Nausea And Vomiting Simethicone 80 mg 09/13/18 17:59 09/15/18 10:11 Mylicon PO 80 mg Q6H PRN Administration Gas pain Sodium Chloride 10 ml 09/13/18 15:00 Sodium Chloride Flush Syringe 10 Ml IV PRN PRN flush Witch Radha/Glycerin 1 each 09/13/18 17:59 Tucks Pad TP PRN PRN Hemorrhoids/cleansing/soothing
--- NOTE | 2018-09-18 17:40 | Progress Note ---
Assessment and Plan A: /postop day 5 S/P repeat section. Hypertension. IDDM. Anemia secondary to and blood loss. P: Temp. at 4:13 PM was 99.0. Mild tachycardia. Consulted with Dr. Lamb re: this patient and Dr. Lamb states to hold discharge and keep patient to observe temperature. Notified patient and nurse re: this. Continue current management. Subjective - Subjective Date of service: 09/18/18 Principal diagnosis: S/P repeat C/section - POD #5. IDDM. CHTN Interval history: /postop day 5 S/P repeat low transverse section. Patient denies headache, visual disturbance, chest pain, SOB, nausea or vomiting, abdominal or epigastric pain, or swelling. Voiding without difficulty; ambulating well. Passing gas. Tolerating a regular diet without nausea or vomiting. BPs well controlled. Patient seen by hospitalist and cleared medically for discharge. Patient reports: appetite normal, voiding normally, pain well controlled, flatus, ambulating normally, no dizzy ambulation, no nauseated : in NICU Objective - Vital Signs Latest vital signs: Vital Signs Temp Pulse Resp BP BP Pulse Ox 09/18/18 16:13 99.0 F 103 H 20 135/83 97 09/18/18 13:40 104 H 130/88 09/18/18 13:20 104 H 18 130/88 09/18/18 08:59 64 148/98 09/18/18 07:25 98.3 F 64 16 148/98 09/18/18 06:17 100 H 152/82 09/18/18 06:14 152/82 09/18/18 04:26 98.1 F 104 H 20 148/86 09/18/18 02:02 100 H 20 131/82 09/17/18 22:10 112 H 162/82 09/17/18 22:09 112 H 165/82 09/17/18 22:02 112 H 162/82 09/17/18 17:54 98.8 F 106 H 20 140/86 98 Intake and Output 09/18/18 09/18/18 09/18/18 07:59 15:59 23:59 Intake Total 120 360 Balance 120 360 Intake: Oral 120 360 Other: Total, Intake Amount 120 240 # Voids Void 1 1 - Exam Abdomen: Present: normal appearance, soft. Absent: distention, tenderness, guarding, rigidity Uterus: Present: normal, firm, fundal height below umbilicus. Absent: bogginess, tenderness Extremities: Present: normal. Absent: tenderness, edema Incision: Present: normal, dry, intact - Labs Labs: Abnormal lab results 09/17/18 09/17/18 09/18/18 Range/Units 17:41 22:22 07:29 POC Glucose 197 H 192 H 226 H (70-105) 09/18/18 Range/Units 16:23 POC Glucose 206 H (70-105)
[2018-09-18] MEDS: MILK OF MAGNESIA PO PRN (22:11)
[2018-09-19] MEDS: APRESOLINE PO SCH (07:14)
[2018-09-19] MEDS: NORMODYNE PO SCH (09:49)
[2018-09-19] MEDS: FEOSOL PO SCH (09:49)
[2018-09-19] MEDS: PROCARDIA XL PO SCH (09:50)
[2018-09-19] MEDS: PERCOCET 5/325 PO PRN (09:50)
[2018-09-19] MEDS: MILK OF MAGNESIA PO PRN (09:55)
--- NOTE | 2018-09-19 11:21 | Progress Note ---
Assessment and Plan - Patient Problems (1) S/P repeat low transverse Status: Acute Plan to address problem: POD 6 - stable Continue routine postop orders Consulted Dr. Vazquez to evaluate patient prior to discharge Follow-up at [facility] [employer] on 09/23/18 to review glucose log and for BP check (2) Chronic hypertension affecting Status: Acute Plan to address problem: BPs stable Continue Hydralazine 10mg PO q8hrs, Labetalol 300mg PO BID, and Procardia XL 30mg PO qday (3) Insulin dependent diabetes mellitus Status: Acute Plan to address problem: Continue accuchecks and sliding scale insulin Patient to continue checking her blood sugar at home 4x/d and follow up in 4 days for review. 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, Event Notes and Hospitalist Progress Note Patient reports: appetite normal, voiding normally, pain well controlled, flatus, ambulating normally, no bowel movement Egnar: in NICU Objective - Vital Signs Latest vital signs: Vital Signs Temp Pulse Resp BP BP Pulse Ox 09/19/18 09:49 130/86 09/19/18 08:12 98.1 F 97 H 16 130/87 98 09/19/18 07:14 92 H 148/82 09/19/18 04:10 98.4 F 104 H 18 122/84 99 09/19/18 00:30 98.6 F 100 H 20 132/82 98 09/18/18 22:06 106 H 155/90 09/18/18 22:05 106 H 155/90 09/18/18 20:05 98.7 F 112 H 20 158/92 09/18/18 16:13 99.0 F 103 H 20 135/83 97 09/18/18 13:40 104 H 130/88 09/18/18 13:20 104 H 18 130/88 Intake and Output 09/18/18 09/19/18 09/19/18 23:59 07:59 15:59 Intake Total 240 120 Balance 240 120 Intake: Oral 240 120 Other: Total, Intake Amount 240 120 # Voids Void 1 1 - Exam Cardiovascular: Present: Regular rate Lungs: Present: Clear to auscultation, Normal air movement Abdomen: Present: normal appearance, soft Vulva: both: normal Uterus: Present: normal, firm, fundal height below umbilicus Extremities: Present: normal Incision: Present: normal, dry, intact, other (steri strips in place) Comments: scant lochia - Labs Labs: Abnormal lab results 09/18/18 09/18/18 09/19/18 Range/Units 16:23 22:24 08:20 POC Glucose 206 H 199 H 149 H (70-105)
--- NOTE | 2018-09-19 15:39 | Progress Note ---
Assessment and Plan - Patient Problems (1) 37 weeks gestation of Current Visit: Yes Status: Acute (2) delivery delivered Current Visit: Yes Status: Acute Plan to address problem: Patient is being discharged home. She was told to come to the office in 3-4 days for wound, BP and glucose check. (3) Tachycardia Current Visit: Yes Status: Acute Plan to address problem: Patient is S/P 2 units PRBCs. Current H/H stable. Tacycardia resolved. (4) Anemia Current Visit: Yes Status: Acute Plan to address problem: Anemia due to acute blood loss. (5) Hypertension Current Visit: Yes Status: Acute Qualifiers: Hypertension type: essential hypertension Qualified Code(s): I10 - Essential (primary) hypertension Plan to address problem: BP has been stable. Continue labetolol, procardia, hydralazine. (6) Diabetes Current Visit: Yes Status: Acute Qualifiers: Diabetes mellitus type: type 2 Diabetes mellitus complication status: without complication Plan to address problem: Patient was told to continue her previous insulin regimen after discharge, to continue FS monitoring and to bring it to the office in 3 days. Subjective - Subjective Date of service: 09/19/18 Principal diagnosis: POD #6; s/p Repeat LTCS; IDDM (pregestational); CHTN Interval history: Patient is S/P repeat C/section 6 days ago. She has chronic HTN.She is on labetolol. Her BP could not be well controlled on labetolol 30 mg BID. Hospitalist consult was done. Procardia and PO hydralazine were added. Her BP has been in the 130-140's/70-80's. She denies any headache or visual changes. She also has pre-gestational DM and is on insulin sliding scale. She received blood transfusion for symptomatic anemia. Her current Hb is 9.2. She denies any dizziness, chest pain or palpitation. She has been ambulating well. Objective - Vital Signs Latest vital signs: Vital Signs Temp Pulse Resp BP BP Pulse Ox 09/19/18 09:49 130/86 09/19/18 08:12 98.1 F 97 H 16 130/87 98 09/19/18 07:14 92 H 148/82 09/19/18 04:10 98.4 F 104 H 18 122/84 99 09/19/18 00:30 98.6 F 100 H 20 132/82 98 09/18/18 22:06 106 H 155/90 09/18/18 22:05 106 H 155/90 09/18/18 20:05 98.7 F 112 H 20 158/92 09/18/18 16:13 99.0 F 103 H 20 135/83 97 Intake and Output 09/18/18 09/19/18 09/19/18 23:59 07:59 15:59 Intake Total 240 120 Balance 240 120 Intake: Oral 240 120 Other: Total, Intake Amount 240 120 # Voids Void 1 1 - Exam Cardiovascular: Present: Normal S1, Normal S2 Lungs: Present: Clear to auscultation Vulva: both: normal Deep Tendon Reflex Grade: Normal +2 - Labs Labs: Abnormal lab results 09/18/18 09/18/18 09/19/18 Range/Units 16:23 22:24 08:20 POC Glucose 206 H 199 H 149 H (70-105) 09/19/18 Range/Units 12:28 POC Glucose 182 H (70-105)
--- NOTE | 2018-09-19 15:48 | Discharge Summary ---
Providers - Providers Date of Admission: 09/13/18 13:28 Date of discharge: 09/19/18 Attending physician: ALISON BAKER 09/17/18 10:37 Consult to Physician [CONS] Urgent Comment: Consulting Provider: JAZZ BEARD Physician Instructions: Reason For Exam: Hypertension, tachycardia, pregestational diabetes Primary care physician: ALISON BAKER Hospitalization Reason for admission: active labor Delivery: Procedure: section Discharge diagnosis: other (HTN, diabetes type 2, anemia, tachycardia) Hospital course: Patient is S/P repeat C/section 6 days ago. She has chronic HTN.She is on labetolol. Her BP could not be well controlled on labetolol 30 mg BID. Hospitalist consult was done. Procardia and PO hydralazine were added. Her BP has been in the 130-140's/70-80's. She denies any headache or visual changes. She also has pre-gestational DM and is on insulin sliding scale. She received blood transfusion for symptomatic anemia. Her current Hb is 9.2. She denies any dizziness, chest pain or palpitation. She has been ambulating well. Objective Condition at discharge: Stable Disposition: DC-01 TO HOME OR SELFCARE - Discharge Diagnoses (1) 37 weeks gestation of Status: Acute (2) delivery delivered Status: Acute (3) Tachycardia Status: Acute (4) Anemia Status: Acute (5) Hypertension Status: Acute Qualifiers: Hypertension type: essential hypertension Qualified Code(s): I10 - Essential (primary) hypertension (6) Diabetes Status: Acute Qualifiers: Diabetes mellitus type: type 2 Diabetes mellitus complication status: without complication Plan - Discharge Medications Prescriptions: hydrALAZINE [Apresoline TAB] 10 mg PO Q8H #60 tablet Ferrous Sulfate [Feosol 325 MG tab] 325 mg PO BID 30 Days #60 tablet Insulin Regular, Human [HumuLIN R] See Protocol SUB-Q AC 30 Days units Labetalol [Normodyne TAB] 200 mg PO BID #60 tablet oxyCODONE /ACETAMINOPHEN [Percocet 5/325] 1 tab PO Q4HR PRN 14 Days #30 tab PRN Reason: Pain , Severe (7-10) NIFEdipine [Procardia] 30 mg PO QDAY #30 capsule - Provider Discharge Summary Activity: no sex for 6 weeks, no heavy lifting 4 weeks, no strenuous exercise Diet: other (Diabetic diet, low sodium diet.) Additional instructions: [] Smoking cessation referral if applicable(refer to patient education folder for contact #) [] Refer to [facility]'s [facility] Booklet Call your doctor immediately for: * Fever > 100.5 * Heavy vaginal bleeding ( >1 pad per hour) * Severe persistent headache * Shortness of breath * Reddened, hot, painful area to leg or breast * Drainage or odor from incision. * Keep incision clean and dry at all times and follow doctor's instructions regarding bathing/showering - Follow up plan Follow up: ALISON BAKER MD [Primary Care Provider] - 7 Days
[2018-09-19 16:14] VITALS: BP 130/78
== END 2018-09-19 19:51 | disposition home or self-care (01) | DRG 765 ==
LOC: APU 13:28 → OB 20:01
PROVIDERS: ADMIT Obstetrics & Gynecology; ATTEND Obstetrics & Gynecology
PROC: 10D00Z1 Extraction of Products of Conception, Low, Open Approach (ICD-10-PCS; principal; 2018-09-13)
PROC: 30233N1 Transfusion of Nonautologous Red Blood Cells into Peripheral Vein, Percutaneous Approach (ICD-10-PCS; 2018-09-15)
DX: O34.211 Maternal care for low transverse scar from previous cesarean delivery (principal); O24.12 Pre-existing type 2 diabetes mellitus, in childbirth; O10.92 Unspecified pre-existing hypertension complicating childbirth; Z3A.37 37 weeks gestation of pregnancy; Z37.0 Single live birth; Z79.4 Long term (current) use of insulin; D57.3 Sickle-cell trait; O99.02 Anemia complicating childbirth; Z83.3 Family history of diabetes mellitus; Z82.49 Family history of ischemic heart disease and other diseases of the circulatory system; D62 Acute posthemorrhagic anemia; O34.13 Maternal care for benign tumor of corpus uteri, third trimester; D25.9 Leiomyoma of uterus, unspecified; O69.81X0 Labor and delivery complicated by cord around neck, without compression, not applicable or unspecified
CPT/HCPCS: 36415; 71275; 80053; 81001; 82962; 83036; 83615; 84550; 85014; 85018; 85025; 85027; 86850; 86900; 86901; 86920; 88307; 93005; 93010; G0378; C9250; J0360; J0690; J1170; J1200; J1815; J2405; J2590; J2765; J3010; J7040; J7120; J7121; P9016; Q9967